=== PATIENT | male | born 1985 | race African-American/Black ===

== ENCOUNTER 2018-12-08 13:02 | Emergency (ER) | payer OTHER ==
[2018-12-08 13:10] VITALS: BP 183/114
--- NOTE | 2018-12-08 13:49 | ER Document Report ---
ED Medical Screen (RME) - General Stated Complaint: DIGESTIVE ISSUES/ABDOMINAL PAIN Time Seen by Provider: 12/08/18 13:39 Notes: Patient is a 33-year-old male who presents the emergency department with a chief complaint of digestive problems. Patient states that a couple months ago he was seen in the emergency department and was diagnosed with a viral gastroenteritis. Since that time, the patient states that he vomits quite frequently. Patient states that he was placed on multiple medications for GERD. Last time he vomited was this morning. He was able to keep Gatorade down after vomiting this morning. Patient states that he has to massage his abdomen to have a good bowel movement. Patient also has a past medical history of PTSD. Patient comments that his blood pressure is high because every time he takes his medications he ends up vomiting. Exam: Soft mildly tender abdomen. I have greeted and performed a rapid initial assessment of this patient. A comprehensive ED assessment and evaluation of the patient, analysis of test results and completion of medical decision making process will be conducted by an additional ED providers. - Related Data Allergies/Adverse Reactions: No Known Allergies Allergy (Unverified 12/08/18 13:47) Physical Exam - Vital signs Vitals: Temp Pulse Resp BP Pulse Ox 98.2 F 88 18 183/114 H 99 12/08/18 13:07 12/08/18 13:07 12/08/18 13:07 12/08/18 13:07 12/08/18 13:07 Course - Vital Signs Vital signs: Temp Pulse Resp BP Pulse Ox 98.2 F 88 18 183/114 H 99 12/08/18 13:07 12/08/18 13:07 12/08/18 13:07 12/08/18 13:07 12/08/18 13:07
[2018-12-08 14:12] LABS: ABSOLUTE EOSINOPHILS # (AUTO) 0.1 10^3/uL (0.0-0.6); ABSOLUTE MONOCYTES (AUTO) 0.7 10^3/uL (0.1-1.4); ABSOLUTE NEUT (AUTO) 4.9 10^3/uL (1.7-8.2); BASOPHILS % (AUTO) 0.6 % (0-2); EOSINOPHILS % (AUTO) 0.8 % (0-6); HEMATOCRIT 43.8 % (37.9-51.0); HEMOGLOBIN 15.3 g/dL (13.5-17.0); LYMPHOCYTES % (AUTO) 25.7 % (13-45); MEAN CORPUSCULAR HEMOGLOBIN 29.9 pg (27.0-33.4); MEAN CORPUSCULAR VOLUME 86 fl (80-97); MONOCYTES % (AUTO) 8.7 % (3-13); PLATELET COUNT 271 10^3/uL (150-450); RED BLOOD COUNT 5.12 10^6/uL (4.35-5.55); RED CELL DISTRIBUTION WIDTH 12.4 % (11.5-14.0); SEGMENTED NEUTROPHILS % (AUTO) 64.2 % (42-78); TOTAL CELLS COUNTED % (AUTO) 100 %; WHITE BLOOD COUNT 7.6 10^3/uL (4.0-10.5)
--- NOTE | 2018-12-08 14:25 | RADIOLOGY REPORT (SQ) ---
EXAM DESCRIPTION: ACUTE ABDOMEN SERIES COMPLETED DATE/TIME: 12/08/2018 2:14 pm REASON FOR STUDY: abd pain COMPARISON: None. NUMBER OF VIEWS: Four views. TECHNIQUE: Frontal chest, supine abdomen and upright/decubitus abdomen radiographic images acquired. LIMITATIONS: None. FINDINGS: CHEST: The cardiomediastinal silhouette and pulmonary vasculature are within normal limits . There is no consolidation, pleural effusion or pneumothorax. FREE AIR: None. BOWEL GAS PATTERN: There is gas and fecal material within nondilated loops of bowel to the level of t he rectum. There are no dilated loops of bowel or differential air-fluid levels. CALCIFICATIONS: None. HARDWARE: None in the abdomen. SOFT TISSUES: No gross abnormality. BONES: No acute fracture. OTHER: No other finding. IMPRESSION: 1. No acute cardiopulmonary process. 2. Nonobstructive bowel gas pattern. TECHNICAL DOCUMENTATION: JOB ID: [id number]- All Rights Reserved Reading location - IP/workstation name: [email or web address]
[2018-12-08 14:36] LABS: ALBUMIN 4.8 g/dL (3.5-5.0); ALKALINE PHOSPHATASE 90 U/L (38-126); ANION GAP 12 (5-19); ASPARTATE AMINO TRANSFERASE 22 U/L (17-59); BILIRUBIN,TOTAL 1.1 mg/dL (0.2-1.3); BLOOD UREA NITROGEN 15 mg/dL (7-20); CALCIUM 9.9 mg/dL (8.4-10.2); CARBON DIOXIDE 27 mmol/L (22-30); CHLORIDE 103 mmol/L (98-107); GLUCOSE 104 mg/dL (75-110); TOTAL PROTEIN 8.4 g/dL (6.3-8.2)
== END 2018-12-08 17:05 | disposition left against medical advice (07) ==
LOC: ER 13:02
DX: K21.9 Gastro-esophageal reflux disease without esophagitis (principal); Z79.899 Other long term (current) drug therapy; R10.9 Unspecified abdominal pain; R11.10 Vomiting, unspecified; Z87.19 Personal history of other diseases of the digestive system; Z53.20 Procedure and treatment not carried out because of patient's decision for unspecified reasons
CPT/HCPCS: 36415; 74022; 80053; 83690; 85025